=== PATIENT | female | born 1985 | race Caucasian/White ===

== ENCOUNTER → 2016-11-03 | Outpatient (CLI) | payer OTHER | LOC: LAB 11:03 | DX: F11.10 Opioid abuse, uncomplicated (principal); F41.9 Anxiety disorder, unspecified; F17.200 Nicotine dependence, unspecified, uncomplicated | CPT/HCPCS: 36415 ==

== ENCOUNTER → 2020-10-09 | Outpatient (CLI) | payer OTHER ==
[~2020-10-09] MED LIST: CLEOCIN HCL150 MG PO; CLEOCIN HCL300 MG PO; CLINDAMYCIN HC300 MG PO; ELAVIL 25 MG TA25 MG PO; ETODOLAC400 MG PO; FELDENE 10 MG C10 MG PO; IBUPROFEN600 MG PO; IBUPROFEN800 MG PO; KEPPRA500 MG PO; LIDOCAINE TOP; NORCO 5-325 TA1 EACH PO; OMNICEF 300 MG300 MG PO; PERCOCET 5/325 T1 EA PO; PROVENTIL HFA6.7 GM INH; TESSALON PERLE100 MG PO; TORADOL 10 MG T10 MG PO; ULTRAM50 MG PO; Viscous lidocaine2% TOP; WELLBUTRIN SR150 M1 PO
[2020-10-09 11:04] LABS: HEMOGLOBIN 15.7 gm/dl (12.3-15.3); RED BLOOD COUNT 5.01 M/UL (4.00-5.10); WHITE BLOOD COUNT 8.3 K/UL (4.5-11.0)
[2020-10-09 11:27] LABS: BUN/CREATININE RATIO 10 (0-10)
[2020-10-10 10:14] LABS: RHEUMATOID ARTHRITIS FACTOR <10.0 IU/mL (0.0-13.9)
== END ==
LOC: LAB 10:28
PROVIDERS: Nurse Practitioner Family
DX: Z00.00 Encounter for general adult medical examination without abnormal findings (principal); R20.2 Paresthesia of skin; M25.50 Pain in unspecified joint; M25.552 Pain in left hip; M54.5 Low back pain
CPT/HCPCS: 36415; 80053; 82607; 84207; 84443; 85025; 85652; 86038; 86431

== ENCOUNTER → 2020-10-26 | Outpatient (CLI) | payer OTHER ==
[2020-10-26 10:34] LABS: HEMOGLOBIN 15.3 gm/dl (12.3-15.3); RED BLOOD COUNT 4.91 M/UL (4.00-5.10); WHITE BLOOD COUNT 8.8 K/UL (4.5-11.0)
[2020-10-26 10:59] LABS: BUN/CREATININE RATIO 10 (0-10)
[2020-10-27 09:11] LABS: HBSAG SCREEN Negative (Negative); HEP A AB, IGM Negative (Negative); HEP B CORE AB, IGM Negative (Negative); HEP C VIRUS AB >11.0 (0.0-0.9); HIV SCREEN 4TH GENERATION WRFX Non Reactive (Non Reactive)
[2020-10-27 10:12] LABS: VITAMIN D, 25-HYDROXY 34.5 ng/mL (30.0-100.0)
[2020-10-27 14:12] LABS: TREPONEMA PALLIDUM ANTIBODIES Non Reactive (Non Reactive)
== END ==
LOC: LAB 09:21
PROVIDERS: Nurse Practitioner
DX: Z00.00 Encounter for general adult medical examination without abnormal findings (principal)
CPT/HCPCS: 36415; 80053; 80061; 80074; 82607; 82746; 83704; 84439; 84443; 84702; 85025; 86780; 87389

== ENCOUNTER 2021-03-10 18:10 | Emergency (ER) | payer OTHER | END 2021-03-10 19:55 | disposition home or self-care (01) | LOC: ER1 18:10 | DX: Z53.21 Procedure and treatment not carried out due to patient leaving prior to being seen by health care provider (principal) ==

== ENCOUNTER → 2022-01-07 | Outpatient (CLI) | payer OTHER | LOC: RAD 13:20 | DX: M25.561 Pain in right knee (principal) | CPT/HCPCS: 73562 ==